=== PATIENT | male | born 1990 | race Caucasian/White ===

== ENCOUNTER 2019-07-15 13:29 | Emergency (ER) | payer BC, OTHER ==
[2019-07-15 16:09] VITALS: BP 128/67
--- NOTE | 2019-07-15 16:16 | UC ---
Throat Pain/Nasal Hayden HPI - HPI Summary HPI Summary: Patient is 28 year old male , who present today to the urgent care with sore throat for past 1-2 days. Started with a scratchy throat. Throat pain getting worse, weak, fever, chills , head and body aches. Also has some ear pain bilaterally No cough. Nausea, no vomiting. Reports sick contacts in the family with similar symptoms. Had fever last night and was sweating, did not take any temperature. Denies any chest pain or shortness of breath . Denies any abdominal pain , nausea or vomiting , diarrhea or constipation. - History of Current Complaint Chief Complaint: UCRespiratory Stated Complaint: ST,BODY ACHES, FEVER Time Seen by Provider: 07/15/19 16:10 Hx Obtained From: Patient Pain Intensity: 8 - Allergies/Home Medications Allergies/Adverse Reactions: Allergies Allergy/AdvReac Type Severity Reaction Status Date / Time amoxicillin Allergy Unknown Rash Verified 07/15/19 16:00 Home Medications: Home Medications D-Methorphan/PE/Acetaminophen [Vicks Dayquil Cold & Flu] 1 cap PO PRN 07/15/19 [ History] Ibuprofen TAB* [Advil TAB*] 400 mg PO Q6H PRN 07/15/19 [History Confirmed ] PMH/Surg Hx/FS Hx/Imm Hx - Additional Past Medical History Additional PMH: Past Medical History : ADHD Past Surgical History: Left ankle ORIF Family History : non contributory Social History : weekly alcohol, non smoker, marijuana use. Previously Healthy: Yes - Surgical History Surgical History: Yes Surgery Procedure, Year, and Place: ankle , left fracture repair with hardware - Family History Known Family History: Positive: Non-Contributory - Social History Alcohol Use: Weekly Substance Use Type: Marijuana Substance Use Comment - Amount & Last Used: occasional Smoking Status (MU): Never Smoked Tobacco Household Exposure Type: Cigarettes Review of Systems All Other Systems Reviewed And Are Negative: Yes Constitutional: Positive: Fever, Chills, Fatigue, Other - Body aches Skin: Positive: Negative Eyes: Positive: Negative ENT: Positive: Negative, Sore Throat, Ear Ache Respiratory: Positive: Negative. Negative: Cough Cardiovascular: Positive: Negative Gastrointestinal: Positive: Negative Genitourinary: Positive: Negative Motor: Positive: Negative Neurovascular: Positive: Negative Musculoskeletal: Positive: Negative Neurological: Positive: Negative Psychological: Positive: Negative Is Patient Immunocompromised?: No Physical Exam - Summary Physical Exam Summary: Physical Exam: Const: Appears well. No signs of apparent distress present. Alert and oriented x 3. Musculo: Walks with a normal gait. Head/Face: Atraumatic, normocephalic on inspection. Eyes: EOMI and PERRLA in both eyes. Conjunctivae clear. No discharge noted ENT: Hearing normal, TM normal appearing bilaterally, non bulging , non erythematous . There is pharyngeal erythema with tonsillar exudates-more on the left than the right . Uvula is midline. Tender Left anterior cervical lymphadenopathy noted. Respiratory: Respirations are unlabored. Lungs clear to auscultation bilaterally, no wheezing , rhonchi or rales noted . CVS: Regular rate and Rhythm, S1S2 normal , no murmurs identified. Extremities: Peripheral circulation is grossly normal. Pulses 2+ Abdomen : Soft non tender , nondistended , Bowel sounds present . No guarding , rebound tenderness or rigidity noted. Skin: No lesions or rash located on the upper extremities or on the lower extremities. Neuro: Cranial nerves II to XII intact, motor and sensory intact. DTR Intact bilaterally. Mood is normal. Affect is normal. Triage Information Reviewed: Yes Vital Signs: Initial Vital Signs Temp 97.6 F 07/15/19 16:03 Pulse 78 07/15/19 16:03 Resp 18 07/15/19 16:03 BP 128/67 07/15/19 16:03 Pulse Ox 99 07/15/19 16:03 Vital Signs Reviewed: Yes Throat Pain/Nasal Course/Dx - Course Course Of Treatment: Rapid strep test: Negative Flu test: neg Symptoms likely due to viral pharyngitis He was given 1 dose of ibuprofen I discussed the use of antibx and how they may not help in this case as I suspect viral etiology. Plan for supportive care and follow with primary care doctor - Differential Dx/Diagnosis Provider Diagnosis: Pharyngitis, Viral pharyngitis Discharge ED - Sign-Out/Discharge Documenting (check all that apply): Patient Departure All imaging exams completed and their final reports reviewed: No Studies - Discharge Plan Condition: Stable Disposition: HOME Patient Education Materials: Viral Syndrome (ED) Referrals: Tammy Contreras PA [Primary Care Provider] - 2 Days Additional Instructions: Viral infections typically run their course in 5 to 7 days. Maintain Hydration (Tylenol) or ibuprofen (Advil, Motrin) according to directions as needed for pain or fever. Use salt water gargles several times a day if you have a sore throat. You may also use Chloraseptic spray or Cepacol lonzenges according to directions which contain a numbing medication and can provide some temporary relief from your sore throat. Follow up with your primary care provider in 3-5 days if symptoms persist. Your blood pressure slightly high in the prehypertensive range, follow up with your primary care doctor for recheck Return to Urgent care / ER if symptoms get worse. - Billing Disposition and Condition Condition: STABLE Disposition: Home
[2019-07-15 16:41] LABS: Influenza A Molecular NEGATIVE (Negative); Influenza B Molecular NEGATIVE (Negative)
[2019-07-15] MEDS ORDERED: Ibuprofen TAB* 600 MG PO ONE (17:06)
== END 2019-07-15 17:10 | disposition home or self-care (01) ==
LOC: UCCORT 13:29
DX: J02.9 Acute pharyngitis, unspecified (principal); F90.9 Attention-deficit hyperactivity disorder, unspecified type; Z88.0 Allergy status to penicillin
CPT/HCPCS: 87651; 99212; A9270-GY; G0463